=== PATIENT | male | born 1990 | race Caucasian/White ===

== ENCOUNTER 2017-02-13 20:48 | Inpatient (IN) | payer MEDICAID ==
[~2017-02-13] VITALS: Ht 193 cm; Wt 76.2 kg
--- NOTE | 2017-02-13 22:05 | NUR ---
TO BED 2 AMBULATORY C/O RLQ ABDOMINAL PAIN SINCE LAST NIGHT. PT AAOX4 NO ACUTE DISTRESS NOTED, RESP EVEN AND UNLABORED. PENDING ER MD WEATHERS.
--- NOTE | 2017-02-13 22:20 | NUR ---
20G RIGHT AC IV STARTED, BLOOD SAMPLE OBTAINED AND SENT TO LAB
[2017-02-13] MEDS ORDERED: IV NS 0.9% 1,000 ML BAG IV ONE (22:30)
--- NOTE | 2017-02-13 22:34 | NUR ---
Anita skelton in [facility] - 02/13/17 at 2303 by LOREN PT TRANSPORTED TO RADIOLOGY FOR CT ABD/PELVIS.
[2017-02-13 22:35] LABS: BASOPHILS % (AUTO) 0.3 % (0.0-2.0); EOSINOPHILS # (AUTO) 0.1 /CMM (0.0-0.7); EOSINOPHILS % (AUTO) 1.3 % (0.0-6.0); HEMATOCRIT 45 % (39-51); LYMPHOCYTES # (AUTO) 1.5 /CMM (0.8-4.8); LYMPHOCYTES % (AUTO) 14.2 % (20.0-44.0); MEAN CORPUSCULAR HEMOGLOBIN 30 PG (26.0-33.0); MEAN CORPUSCULAR HGB CONC 33 g/dl (31.0-36.0); MEAN CORPUSCULAR VOLUME 89 fL (80-96); MONOCYTES # (AUTO) 0.8 /CMM (0.1-1.30); MONOCYTES % (AUTO) 7.6 % (2.0-12.0); NEUTROPHILS % (AUTO) 76.6 % (43.0-81.0); PLATELET COUNT (AUTO) 163 /CMM (150-450); RDW COEFFICIENT OF VARIATION 12.8 (11.5-15.0); RED BLOOD CELL COUNT(AUTO) 5.04 MIL/uL (4.5-6.0); WHITE BLOOD COUNT (AUTO) 10.5 K/uL (4.3-11.0)
[2017-02-13 22:42] LABS: APPEARANCE,URINE CLEAR (CLEAR); BILIRUBIN,URINE NEGATIVE (NEGATIVE); BLOOD, URINE TRACE-INTA Ery/uL (NEGATIVE); COLOR,URINE YELLOW (YELLOW); KETONES,URINE NEGATIVE (NEGATIVE); LEUKOCYTE ESTERASE ,URINE NEGATIVE (NEGATIVE); NITRITE, URINE NEGATIVE (NEGATIVE); PROTEIN,URINE NEGATIVE (NEGATIVE); UGLUCOSE NEGATIVE (NEGATIVE); UROBILINOGEN,URINE 0.2 EU/dL (0.2)
[2017-02-13 22:48] LABS: CALCIUM, SERUM 9.2 mg/dL (8.5-10.1); POTASSIUM 3.7 mmol/L (3.5-5.1)
[2017-02-13 22:52] LABS: BACTERIA,URINE None seen /HPF (None Seen); RBC,URINE 0-2 /HPF (0-2); SQUAMOUS EPITHELIAL CELL,UR None Seen /HPF (None Seen); WBC,URINE NONE SEEN /HPF (0-3)
[2017-02-13 22:56] LABS: INR 0.96 (0.87-1.13); PROTHROMBIN TIME 10.2 SECS (9.5-12.7)
[2017-02-13] MEDS ORDERED: IOHEXOL-300 100 ML VIAL IV ONE (23:00)
[2017-02-13] MEDS ORDERED: CT SWABBABLE VALVE TRANS SET 1 EA INFUS.SET MC ONE (23:00)
--- NOTE | 2017-02-13 23:03 | NUR ---
RADIOLOGY CALLED FOR CT ABD/PELVIS WITH IV CONTRAST.
--- NOTE | 2017-02-13 23:08 | NUR ---
PT TRANSPORTED TO RADIOLOGY FOR CT ABD/PELVIS WITH IV CONTRAST.
--- NOTE | 2017-02-13 23:22 | NUR ---
PT BACK FROM RADIOLOGY. PENDING CT ABD/PELVIS RESULT.
[2017-02-14] MEDS ORDERED: PIPERACILLIN /TAZOBACTAM 3.375 G in IV D5W 50 ML IV ONE ×2
--- NOTE | 2017-02-14 00:07 | NUR ---
ZAINAB TELLES AT BEDSIDE TALKING TO PT REGARDING CT RESULT AND HOSPITAL ADMISSION.
--- NOTE | 2017-02-14 00:09 | NUR ---
TRACTOR TRAILER OPERATOR AT BEDSIDE FOR BLOOD CULTURE DRAW.
[2017-02-14] MEDS ORDERED: PIPERACILLIN /TAZOBACTAM 3.375 G VIAL IV ONE (00:11)
--- NOTE | 2017-02-14 00:23 | NUR ---
ER ANGELINA TELLES TALKING TO DR. VICENTE COONEY REGARDING PT ADMISSION.
--- NOTE | 2017-02-14 00:34 | NUR ---
ER BUSINESS OPERATIONS ANALYST KOKI SPOKE TO DR. LE ACQUISITION MARKETING MANAGER FOR DR. KELLY REGARDING PT ADMISSION, DR. LE STATES ADMIT PT TO HOSPITALIST.
--- NOTE | 2017-02-14 00:35 | NUR ---
ER ANGELINA TELLES SPOKE TO KIANA RICOPILI REGARDING PT ADMISSION.
[2017-02-14 01:05] VITALS: BP 108/65
[2017-02-14] MEDS ORDERED: MAG HYDROX/AL HYDROX/SIMETH 30 ML UDC PO PRN (01:30)
[2017-02-14] MEDS ORDERED: Z GUARD REMEDY 2 OZ OINT TP PRN (01:30)
[2017-02-14] MEDS ORDERED: ONDANSETRON HCL/PF 4 MG/2 ML VIAL IVP PRN (01:30)
[2017-02-14] MEDS ORDERED: ACETAMINOPHEN 325 MG TABLET PO PRN (01:30)
[2017-02-14] MEDS ORDERED: MORPHINE SULFATE INJ 4 MG/ML DISP.SYRIN IV PRN (01:30)
[2017-02-14] MEDS ORDERED: MAGNESIUM HYDROXIDE 30 ML UDC PO PRN (01:30)
[2017-02-14] MEDS ORDERED: MORPHINE SULFATE INJ 4 MG/ML DISP.SYRIN ONE (01:42)
[2017-02-14] MEDS: IV NS 0.9% 1,000 ML IV PRN ×2 (01:50→17:18)
--- NOTE | 2017-02-14 02:41 | NUR ---
MS RN ADMITTING NOTES RECEIVED FROM ER AT 0100 VIA W/C ACLS PROTOCOL, A/O X4, NEEDS KNOWN SELF TO OTHERS, NO IN RESPIRATORY DISTRESS, IV SITE INTACT NO S/S OF INFILTRATION. HEAD TO TOE ASSESSMENT IS DONE SKIN IS INTACT CALL LIGHT WITHIN REACH. SAFETY MEASURES IN PLACE, ON LOW BED, WILL CONTINUE TO MONITOR PT. PATIENT DIET NPO FOR NOW SPOKE TO DR. KIANA VALDEZ ORDERED NOTED AND CARRIED OUT
[2017-02-14] MEDS ORDERED: PIPERACILLIN /TAZOBACTAM 4.5 G in IV D5W 50 ML IV SCH (05:00)
[2017-02-14] MEDS ORDERED: PIPERACILLIN /TAZOBACTAM 2.25 G VIAL IV ONE (05:23)
--- NOTE | 2017-02-14 06:38 | NUR ---
MS RN CLOSING NOTES PATIENT COMFORTABLY ASLEEP AND EASILY AWAKEN, A/O X 4, HEAD OF BED ELEVATED FOR BETTER LUNG EXPANSION. TOLERATING ROOM AIR 02 SAT 99%, IV SITE NO S/S OF INFILTRATED PATENT AND FLUSHED, NOT IN ACUTE DISTRESS. RESPIRATIONS EVEN AND UNLABORED, NURSING CARE RENDERED, NEEDS ATTENDED AND ANTICIPATED, KEPT CLEAN AND DRY AND COMFORTABLE, GOOD SKIN CARE PROVIDED. FREQUENT VISUAL CHECK DONE FOR SAFETY EVERY 2 HOURS. SAFE HAZARD FREE ENVIRONMENT PROVIDED. CALL LIGHT WITHIN EASY TO REACH, ON LOW BED AT ALL TIMES TO ENSURE SAFETY, WILL ENDORSE TO THE NEXT SHIFT CONTINUE PLAN OF CARE. NO COMPLAINS OF PAIN 0/10
--- NOTE | 2017-02-14 07:30 | NUR ---
RN NOTES RECEIVED PATIENT IN BED AWAKE ALERT AND VERBALLY RESPONSIVE, ABLE TO MAKE NEEDS KNOWN. DENIES ANY PAIN OR DISCOMFORT AT THIS TIME, CONTINUED ON PAIN MANAGEMENT. IV ACCESS PATENT AND INTACT NO REDNESS OR INFILTRATION NOTED. CALL LIGHT WITHIN EASY REACH, KEPT CLEAN DRY AND COMFORTABLE, WILL CONTINUE TO MONITOR
[2017-02-14 08:00] VITALS: BP 99/64
--- NOTE | 2017-02-14 08:42 | NUR ---
RN NOTES RECEIVED CALL FROM DR. David JASON MD ON PT, MD WILL SEE PT
[2017-02-14] MEDS: FAMOTIDINE/PF INJ 20 MG/2 ML VIAL IV SCH ×2 (09:18→21:08)
[2017-02-14] MEDS: PIPERACILLIN /TAZOBACTAM 3.375 G in IV D5W 50 ML IV SCH ×3 (11:39→23:26)
--- NOTE | 2017-02-14 15:43 | NUR ---
RN NOTES PER DR. MARSHA COONEY PT WILL NOT HAVE SURGERY, WILL CONTINUE ALL ORDERS AND CONTINUE TO MONITOR Addendum: 02/14/17 at 1544 by TIMOTHY OLIVA RN Amended: Links added.
[2017-02-14 16:00] VITALS: BP 107/70
--- NOTE | 2017-02-14 16:00 | NUR ---
RN NOTES PER DR. KELLY, PATIENT TO BE SEEN BY DR. EGAN GI TO REMAIN NPO AT THIS TIME, WILL CONTINUE TO MONITOR
--- NOTE | 2017-02-14 19:04 | NUR ---
RN NOTES PATIENT IN BED AWAKE ALERT AND VERBALLY RESPONSIVE, ABLE TO MAKE NEEDS KNOWN. DENIES ANY PAIN OR DISCOMFORT AT THIS TIME, CONTINUED ON PAIN MANAGEMENT. IV ACCESS PATENT AND INTACT NO REDNESS OR INFILTRATION NOTED. CALL LIGHT WITHIN EASY REACH, KEPT CLEAN DRY AND COMFORTABLE, WILL CONTINUE TO MONITOR AND ENDORSE TO NEXT SHIFT FOR CONTINUITY OF CARE
--- NOTE | 2017-02-14 19:20 | NUR ---
RN INITIAL NOTES: RECEIVED REPORT FROM STARR RODAS, PT IN BED, AWAKE, A/O X4, ON ROOM AIR RESPIRATION EVEN AND UNLABORED, DR EGAN CURRENTLY TALKING TO THE THE PT, PT C/O 5/ PAIN BUT STATED ITS TOLERABLE, PT HAS RIGHT AC G20 PATENT AND FLUSHING WELL, INFUSING WITH NS AT 100ML/HR, NO REDNESS OR INFILTRATION NOTED, SAFETY PRECAUTIONS FOR FALL INITIATE CALL LIGHT IN REACH WILL CONTINUE TO MONITOR
--- NOTE | 2017-02-14 19:25 | NUR ---
RN NOTES: SEEN BY DR EGAN, PER MD TO PLACED PT ON CLEAR LIQUID DIET
[2017-02-14 20:00] VITALS: BP 122/75
[2017-02-15] MEDS: IV NS 0.9% 1,000 ML IV PRN (03:37)
[2017-02-15] MEDS: PIPERACILLIN /TAZOBACTAM 3.375 G in IV D5W 50 ML IV SCH ×4 (05:27→23:39)
--- NOTE | 2017-02-15 06:41 | NUR ---
ms rn closing notes: pt in bed, awake, a/o x4, denies any sob, stated his pain is a lot better, 4/10 manageable, right ac iv access remains patent and flushing well, infusing with ns at 100ml/hr, no n/v noted, pt tolerated po intake well. pt is vegetarian. vs remains stable, needs attended, safety precautions for fall remains engaged, call light in reach, will endorse to day rn for kenyetta.
--- NOTE | 2017-02-15 07:15 | NUR ---
RN NOTES PT IS IN BED, SLEEPING. PT ON ROOM AIR, SHOWS NO SIGNS OF DISTRESS OR PAIN AT THIS TIME. IV ON RAC RUNNING NS AT 100 ML/HR. SAFETY MEASURES ARE IN PLACE. WILL CONTINUE TO MONITOR.
[2017-02-15 07:24] LABS: BASOPHILS % (AUTO) 0.6 % (0.0-2.0); EOSINOPHILS # (AUTO) 0.2 /CMM (0.0-0.7); EOSINOPHILS % (AUTO) 3.3 % (0.0-6.0); HEMATOCRIT 40 % (39-51); HEMOGLOBIN 13.7 g/dL (13.5-17.5); LYMPHOCYTES # (AUTO) 1.7 /CMM (0.8-4.8); LYMPHOCYTES % (AUTO) 31.6 % (20.0-44.0); MEAN CORPUSCULAR HEMOGLOBIN 30 PG (26.0-33.0); MEAN CORPUSCULAR HGB CONC 34 g/dl (31.0-36.0); MEAN CORPUSCULAR VOLUME 89 fL (80-96); MONOCYTES # (AUTO) 0.6 /CMM (0.1-1.30); MONOCYTES % (AUTO) 11.8 % (2.0-12.0); NEUTROPHILS # (AUTO) 2.8 /CMM (1.8-8.9); NEUTROPHILS % (AUTO) 52.7 % (43.0-81.0); PLATELET COUNT (AUTO) 151 /CMM (150-450); RDW COEFFICIENT OF VARIATION 12.6 (11.5-15.0); RED BLOOD CELL COUNT(AUTO) 4.51 MIL/uL (4.5-6.0); WHITE BLOOD COUNT (AUTO) 5.2 K/uL (4.3-11.0)
[2017-02-15 07:43] LABS: CALCIUM, SERUM 9.1 mg/dL (8.5-10.1); CREATININE 1.2 mg/dL (0.6-1.3); PHOSPHORUS 4.7 mg/dL (2.5-4.9); POTASSIUM 4.5 mmol/L (3.5-5.1)
[2017-02-15 08:00] VITALS: BP 105/69
[2017-02-15] MEDS: FAMOTIDINE/PF INJ 20 MG/2 ML VIAL IV SCH ×2 (08:52→20:52)
[2017-02-15 16:00] VITALS: BP 124/65
--- NOTE | 2017-02-15 18:46 | NUR ---
RN NOTES PT IS SITTING IN BED, ALERT AND AWAKE, WITH FRIEND AT BEDSIDE. IV ON RAC INTACT AND PATENT, RUNNING NS AT 100 ML/HR. PT ON ROOM AIR, SATING 98%. PT HAS NO SOB, SIGNS OF DISTRESS OR PAIN NOTED. ALL MEDS WERE GIVEN ORDERED. SAFETY MEASURES ARE IN PLACE, CALL LIGHT IS IN REACH. WILL ENDORSE TO LANDSCAPE ARCHITECT RN FOR CONTINUITY OF CARE.
--- NOTE | 2017-02-15 19:30 | NUR ---
RN NOTES: RECEIVED AWAKE ON BED, NO SIGN OF RESPIRATORY DISTRESS NOTED, LYING COMFORTABLY IN BED ON ROOM AIR, HE IS ALERT AND ORRIENTEDX3,IVF OF NS AT 100 ML/HR TEMPORARILY STOP PER PATIENT REQUEST, IV CANNULA RAC G#20 INTACT,NO COMPLAINTS OF PAIN OR DISCOMFORT,HE REQUEST TO RESUME IT LATER,ENCOURAGE TO INCREASE FLUID INTAKE, ABLE TO AMBULATE GOING TO THE BATHROOM, DIET UPGRADED TO REGULAR. NO SOB OR SIGN OF RESPIRATORY DISTRESS NOTED, FALL, SAFETY AND ASPIRATION PRECAUTION OBSERVE, CALL LIGHT WITHIN EASY REACH, BED LOW AND LOCKED.
[2017-02-15 20:00] VITALS: BP 110/52
[2017-02-16] MEDS: IV NS 0.9% 1,000 ML IV PRN (03:32)
--- NOTE | 2017-02-16 03:43 | NUR ---
RN NOTES; ASLEEP AT SHORT INTERVALS, NO PAIN OR DISCOMFORT,IVF FINISHED, NEW BAG OF IV NS AT 100 ML/HR STARTED AT 0332.
[2017-02-16] MEDS: PIPERACILLIN /TAZOBACTAM 3.375 G in IV D5W 50 ML IV SCH ×2 (05:13→11:16)
--- NOTE | 2017-02-16 07:15 | NUR ---
RECEIVED PT IN BED, SLEEPING WITH NO SOB OR SIGNS OF DISTRESS. IV ON RAC RUNNING NS AT 75ML/HR. SAFETY MEASURES ARE IN PLACE, CALL LIGHT IS IN REACH. WILL CONTINUE TO MONITOR.
--- NOTE | 2017-02-16 07:43 | NUR ---
RN NOTES: PATIENT ABLE TO REST AND SLEEP, NO COMPLAINTS OF PAIN OR DISCOMFORT,ENDORSED TO NEXT SHIFT FOR CONTINUITY OF CARE.
[2017-02-16 08:00] VITALS: BP 111/69
[2017-02-16] MEDS: FAMOTIDINE/PF INJ 20 MG/2 ML VIAL IV SCH (08:09)
[2017-02-16] MEDS ORDERED: MESA500C PO (11:25)
[2017-02-16] MEDS ORDERED: AMOX-430 PO (11:25)
[2017-02-16] MEDS ORDERED: MESALAMINE 250 MG CAPSULE.SA PO SCH (13:00)
--- NOTE | 2017-02-16 13:40 | NUR ---
PT TOOK FIRST DOSE OF PENTASA WITHOUT ALLERGIC REACTION, PER DR. KELLY, PT IS ABLE TO BE DISCHARGED. PT WAS GIVEN DISCHARGE EDUCATION AND INSTRUCTIONS TO FOLLOW UP WITH HIS PCP. PT STATED HE WOULD MAKE THE APPOINTMENT ON HIS OWN. ALL MEDS WERE GIVEN ORDERED. BELONGINGS LIST AND DISCHARGE FORM WERE SIGNED. PRESCRIPTION FOR NEW MEDICATIONS WERE GIVEN. IV AND ID BAND WERE REMOVED. PT LEFT IN STABLE CONDITION BY PRIVATE CAR ACCOMPANIED BY MOTHER.
== END 2017-02-16 13:35 | disposition home or self-care (01) | DRG 254 ==
LOC: ER 20:50 → MED 02-14 01:03
PROVIDERS: ADMIT Internal Medicine; ATTEND Internal Medicine
DX: K35.80 Unspecified acute appendicitis (principal); K50.90 Crohn's disease, unspecified, without complications; K52.9 Noninfective gastroenteritis and colitis, unspecified; K59.00 Constipation, unspecified
CPT/HCPCS: 36415; 80048-TC; 80061-TC; 81000-TC; 83605-TC; 83735-TC; 84100-TC; 85025-TC; 85730-TC; 86850-TC; 87040-TC; 87081-TC; A4216; A4606; J2270; J2543; J3490; J7030; J7060; Q9967; Z7610

== ENCOUNTER 2020-02-23 17:19 | Emergency (ER) | payer MEDICAID, OTHER ==
[~2020-02-23] VITALS: Ht 193 cm; Wt 69.4 kg
[~2020-02-23 17:19] MED LIST: AMOX-430 PO; MESA500C PO
--- NOTE | 2020-02-23 17:30 | NUR ---
PT STATES "RIGHT CHEEK CYSTS NEEDS TO BE DRAINED", TO ER BED 10, HOOKED TO MONITOR, CHANGED TO [facility] GOWN, AWAOTING MD WEATHERS
[2020-02-23] MEDS ORDERED: LIDOCAINE 2% 20 ML MDV TP ONE (18:00)
[2020-02-23] MEDS ORDERED: LIDOCAINE 2% 20 ML MDV ONE (18:01)
--- NOTE | 2020-02-23 18:09 | NUR ---
WINDY SALOMON AT BEDSIDE
[2020-02-23 18:27] VITALS: BP 139/80
--- NOTE | 2020-02-23 18:27 | NUR ---
Patient discharged to home in stable condition. Written and verbal after care instructions given. Patient verbalizes understanding of instruction.
== END 2020-02-23 18:28 | disposition home or self-care (01) ==
LOC: ER 17:19
DX: L72.3 Sebaceous cyst (principal); Z60.2 Problems related to living alone
CPT/HCPCS: 10060; 99283; A6403; J3490